=== PATIENT | female | born 1985 | race Caucasian/White ===

== ENCOUNTER 2018-08-05 22:05 | Emergency (ER) | payer BC ==
[2018-08-05] MEDS ORDERED: METOCLOPRAMIDE HCL INJ/PF 10 MG/2 ML SDV IV ONE ×2 (22:25→23:21)
[2018-08-05] MEDS ORDERED: KETOROLAC TROMETHAMINE INJ/PF 30 MG/1 ML SDV IV ONE (22:25)
[2018-08-05] MEDS ORDERED: VALACYCLOVIR HCL 500 MG TABLET PO ONE (22:41)
[2018-08-05] MEDS ORDERED: PREDNISONE 20 MG TABLET PO ONE (22:41)
--- NOTE | 2018-08-05 22:44 | RADIOLOGY REPORT (SQ) ---
CT HEAD WITHOUT IV CONTRAST HISTORY: Headache. COMPARISON: None. TECHNIQUE: CT scan of the brain without IV contrast. This exam was performed according to our departmental dose-optimization program, which includes automated exposure control, adjustment of the mA and/or kV according to patient size and/or use of iterative reconstruction technique. FINDINGS: The ventricles, cisterns, and sulci are unremarkable. No focal white matter lesions are seen. No evidence of acute infarction, intracranial hemorrhage, extra-axial fluid collection, or midline shift. There is a mucous retention cyst/polyp in the left maxillary sinus. No depressed skull fracture. IMPRESSION: No acute intracranial findings.
--- NOTE | 2018-08-05 22:44 | ER Document Report ---
ED General - General Chief Complaint: Facial Droop Stated Complaint: LEFT SIDE FACIAL DEFICIT Time Seen by Provider: 08/05/18 22:24 Primary Care Provider: LUKE NEAL PA-C [Primary Care Provider] - Follow up as needed Notes: Patient is a 33-year-old female without chronic medical problems presents with 24 hours of progressively worsening left-sided facial weakness. Patient states that she first noticed her symptoms last evening when she was brushing her teeth began having drooling out of the corner of her left mouth. States that throughout the day today she noticed that she was having increasing feelings of weakness on the left side of her face. She also notes that her left arm felt heavy intermittently but that that has since resolved. No history of similar symptoms in the past. Nothing improves or worsens her symptoms. Has not seen her primary care doctor regarding today's concerns. She has had a headache for the last several days but notes that she has not had a headache within the last 24 hours. - Related Data Allergies/Adverse Reactions: No Known Allergies Allergy (Verified 08/05/18 22:44) Past Medical History - General Information source: Patient - Social History Smoking Status: Never Smoker Frequency of alcohol use: None Drug Abuse: None Family History: Reviewed & Not Pertinent Review of Systems - Review of Systems Notes: Constitutional: Negative for fever. HENT: Negative for sore throat. Eyes: Negative for visual changes. Cardiovascular: Negative for chest pain. Respiratory: Negative for shortness of breath. Gastrointestinal: Negative for abdominal pain, vomiting or diarrhea. Genitourinary: Negative for dysuria. Musculoskeletal: Negative for back pain. Skin: Negative for rash. Neurological: Positive for headaches now resolved, positive for left facial droop 10 point ROS negative except as marked above and in HPI. Physical Exam - Vital signs Vitals: Temp Pulse Resp BP Pulse Ox 98 F 99 19 162/87 H 99 08/05/18 22:11 08/05/18 22:11 08/05/18 22:11 08/05/18 22:11 08/05/18 22:11 Interpretation: Hypertensive Notes: PHYSICAL EXAMINATION: GENERAL: Well-appearing, well-nourished and in no acute distress. HEAD: Atraumatic, normocephalic. EYES: Pupils equal round and reactive to light, extraocular movements intact, sclera anicteric, conjunctiva are normal. ENT: nares patent, oropharynx clear without exudates. Moist mucous membranes. NECK: Normal range of motion, supple without lymphadenopathy LUNGS: Breath sounds clear to auscultation bilaterally and equal. No wheezes rales or rhonchi. HEART: Regular rate and rhythm without murmurs ABDOMEN: Soft, nontender, normoactive bowel sounds. No guarding, no rebound. No masses appreciated. EXTREMITIES: Normal range of motion, no pitting or edema. No cyanosis. NEUROLOGICAL: There is a left-sided facial droop. There is effacement of the left forehead. Tongue protrudes midline. Extraocular motions intact. Pupils are 2 mm and equally reactive. Normal speech, normal gait. 5 out of 5 strength in both the distal and proximal upper and lower extremities bilaterally. Sensation is grossly intact throughout. PSYCH: Normal mood, normal affect. SKIN: Warm, Dry, normal turgor, no rashes or lesions noted. 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 Patient has complete involvement including of the forehead. No additional focal neurologic deficits. Patient did complain in triage of some left arm heaviness although again to be clear on exam she has absolutely no weakness on that side. Presentation and exam are not consistent with an acute stroke. CT of the head was obtained prior to my assessment with the patient and is otherwise noted to be unremarkable. Patient has been started on prednisone and valacyclovir. An eye patch has been provided. At this time will discharge with return precautions and follow-up recommendations. Verbal discharge instructions given a the bedside and opportunity for questions given. Medication warnings reviewed. Patient is in agreement with this plan and has verbalized understanding of return precautions and the need for primary care follow-up in the next 24-72 hours. - Vital Signs Vital signs: Temp Pulse Resp BP Pulse Ox 98 F 99 17 123/93 H 100 08/05/18 22:11 08/05/18 22:11 08/05/18 23:02 08/05/18 23:02 08/05/18 23:02 - Diagnostic Test Radiology reviewed: Image reviewed, Reports reviewed Radiology results interpreted by me: 08/05/18 22:42 CT head: No acute intracranial bleed or mass Discharge - Discharge Clinical Impression: Simms's palsy, Weakness on left side of face Condition: Good Disposition: HOME, SELF-CARE Additional Instructions: You have been diagnosed with a condition called Simms's palsy. You have not had a stroke. This is inflammation of your facial nerve and should improve over the next several months. Very few cases progress to being permanent. Please take the steroids and antiviral medications that have been prescribed as directed. Complete the course. Please follow-up with your primary care physician in the next several days. Return if you develop spreading weakness, numbness, confusion, headache, neck pain, fever greater than 101F, or any other symptoms that are concerning to you. Prescriptions: Prednisone [Deltasone 20 mg Tablet] 3 tab PO DAILY 7 Days tablet Valacyclovir HCl [Valtrex 500 mg Tablet] 500 mg PO BID #10 tablet Forms: Return to Work Referrals: LUKE NEAL PA-C [Primary Care Provider] - Follow up as needed
[2018-08-05 23:54] VITALS: BP 123/93
--- NOTE | 2018-08-06 13:07 | EKG REPORT ---
SEVERITY:- NORMAL ECG - SINUS RHYTHM : Confirmed by: Josephine Tuttle MD 06-Aug-2018 13:06:46
== END 2018-08-05 23:53 | disposition home or self-care (01) ==
LOC: ER 22:05
DX: G51.0 Bell's palsy (principal); R20.0 Anesthesia of skin
CPT/HCPCS: 93005; 99284; 96374; 70450; 93010; J2765; J7512